=== PATIENT | male | born 1950 | race Caucasian/White ===

== ENCOUNTER 2021-03-17 08:05 | Emergency (ER) | payer MEDICARE, BC ==
[~2021-03-17] VITALS: Ht 167.6 cm; Wt 75.0 kg
[2021-03-17] MEDS ORDERED: CASIRIVIMAB/IMDEVIMAB inject. 10 ML in normal saline 100ml IV soln 100 ML IV ONE (09:10)
[2021-03-17] MEDS ORDERED: SOTROVIMAB 500 MG in NS 100ml IV soln IV ONE (10:00)
[2021-03-17 12:00] VITALS: BP 129/79
== END 2021-03-17 13:25 | disposition home or self-care (01) ==
LOC: ER 08:06
DX: U07.1 COVID-19 (principal); J02.9 Acute pharyngitis, unspecified; R05.9 Cough, unspecified
CPT/HCPCS: 99285; J3490; M0247; Q0247